=== PATIENT | male | born 1975 | race African-American/Black ===

== ENCOUNTER 2021-10-15 20:01 | Emergency (ER) | payer OTHER ==
[2021-10-15 20:44] VITALS: BP 123/73; PULSE 92; RESP 18
--- NOTE | 2021-10-15 21:44 | ED ---
General Adult HPI - General Chief complaint: Upper Respiratory Infection Stated complaint: Cough,Congestion Time Seen by Provider: 10/15/21 21:35 Source: patient, RN notes reviewed Mode of arrival: ambulatory Limitations: no limitations - History of Present Illness Initial comments: This is a well-appearing 46-year-old male that presents to the emergency room with complaints of cough and congestion for the past 3-4 days. He states that his has similar symptoms. They have been tested and are negative for Covid. He did get the Covid vaccine and booster. He denies any chest pain. He states that the cough is worse at night, during the day is not present. He denies any leg swelling, fevers, nausea or vomiting. He denies any medical history no medicines on a daily basis. He is a smoker and smokes one pack in about 3 days. -: days(s) (4) Severity scale (1-10): 0 Associated Symptoms: cough, other (Congestion, sinus draining) - Related Data Previous Rx's Medication Instructions Recorded Albuterol Inhaler (Mhu) [Ventolin 2 puff INHALATION Q6HR PRN #1 01/06/16 Hfa Inhaler (Mhu)] inhaler Ciprofloxacin HCl [Cipro] 500 mg PO Q12HR #20 tablet 01/06/16 predniSONE [Deltasone] 20 mg PO BID #14 tab 01/06/16 Loratadine/Pseudoephedrine 1 tab PO DAILY 30 Days #30 tab 10/15/21 [Loratadine-D 24Hr Tablet] Allergies Allergy/AdvReac Type Severity Reaction Status Date / Time Penicillins Allergy Anaphylaxis Verified 10/15/21 20:44 Review of Systems ROS Statement: Those systems with pertinent positive or pertinent negative responses have been documented in the HPI. ROS Other: All systems not noted in ROS Statement are negative. Past Medical History Past Medical History: No Reported History History of Any Multi-Drug Resistant Organisms: None Reported Past Surgical History: No Surgical Hx Reported Past Psychological History: No Psychological Hx Reported Smoking Status: Current every day smoker Past Alcohol Use History: Occasional Past Drug Use History: None Reported General Exam Limitations: no limitations General appearance: alert, in no apparent distress Head exam: Present: atraumatic, normocephalic, normal inspection Eye exam: Present: normal appearance, EOMI. Absent: scleral icterus, co njunctival injection, periorbital swelling ENT exam: Present: normal exam, normal oropharynx, mucous membranes moist Neck exam: Present: normal inspection, full ROM. Absent: tenderness, meningismus, lymphadenopathy, thyromegaly Respiratory exam: Present: normal lung sounds bilaterally. Absent: respiratory distress, wheezes, rales, rhonchi, stridor Cardiovascular Exam: Present: regular rate, normal rhythm, normal heart sounds. Absent: systolic murmur, diastolic murmur, rubs, gallop, clicks Extremities exam: Present: normal inspection, full ROM, normal capillary refill. Absent: tenderness, pedal edema, joint swelling, calf tenderness Neurological exam: Present: alert, oriented X3, normal gait. Absent: CN II-XII intact Psychiatric exam: Present: normal affect, normal mood Skin exam: Present: warm, dry, intact, normal color. Absent: rash, cyanosis, diaphoretic Course Vital Signs 10/15/21 20:38 Pulse Rate 92 Respiratory 18 Rate Blood Pressure 123/73 O2 Sat by Pulse 99 Oximetry Medical Decision Making - Medical Decision Making Patient presents to the emergency room with complaints of cough and congestion with nasal drainage that is worse at night for the past 4 days. He denies any fevers. He states that his also has similar symptoms. His lungs are clear to auscultation vital signs are stable. His Covid test is negative. Chest x- ray is clear with no acute cardiopulmonary process. Patient was directed to try Benadryl at night to suppress the drainage and cough. I did discuss return parameters of increasing difficulty in breathing, chest pain, or fevers to return to the emergency room. Case discussed with Dr. Man. - Lab Data Lab Results 10/15/21 Range/Units 20:46 Coronavirus (PCR) Not Detected (Not Detectd) Disposition Clinical Impression: Common cold Disposition: HOME SELF-CARE Condition: Good Additional Instructions: You can try Benadryl 25 or 50 mg at night to help with drainage. Return to the emergency room with any new or worsening symptoms including headache, sinus pain or fevers. Prescriptions: Loratadine/Pseudoephedrine [Loratadine-D 24Hr Tablet] 1 tab PO DAILY 30 Days #30 tab Is patient prescribed a controlled substance at d/c from ED?: No Referrals: None,Stated [Primary Care Provider] - 1-2 days
--- NOTE | 2021-10-15 22:16 | XR ---
EXAMINATION TYPE: XR chest 2V DATE OF EXAM: 10/15/2021 COMPARISON: 01/06/2016 HISTORY: Cough TECHNIQUE: 2 views FINDINGS: Heart and mediastinum are normal. Lungs are clear. Diaphragm is normal. Bony thorax is inta ct. IMPRESSION: Normal chest. No change.
== END 2021-10-15 23:40 | disposition home or self-care (01) ==
LOC: EC 20:01
DX: J00 Acute nasopharyngitis [common cold] (principal); F17.200 Nicotine dependence, unspecified, uncomplicated; Z20.822 Contact with and (suspected) exposure to COVID-19; Z88.0 Allergy status to penicillin
CPT/HCPCS: 71046; 87635; 99283

== ENCOUNTER 2022-02-12 06:52 | Day surgery (SDC) | payer OTHER ==
[2022-02-09 08:29] VITALS: BMI 34.2
[~2022-02-12 06:52] MED LIST: DEXAMETHASONE SOD PHOSPHATE 4 MG/ML 1 ML VIAL IV ONE; LACTATED RINGERS 1,000 ML IV SCH; LIDOCAINE 1% (10MG/ML) FOR IV START INTRADERMA PRN; ONDANSETRON 4 MG/2 ML VIAL IVP ONE; SCOPOLAMINE 1.5MG/72HR PATCH TRANSDERM ONE; VANCOMYCIN 1,750 MG in SODIUM CHLORIDE 0.9% 500 ML 500 ML IVPB PRN
[2022-02-12] MEDS ORDERED: HYDROmorphone 0.5 MG/0.5 ML SYRINGE IVP PRN (07:00)
[2022-02-12 07:41] VITALS: RESP 16
[2022-02-12] MEDS ORDERED: MIDAZOLAM 2 MG/2 ML VIAL IV ONE (08:01)
[2022-02-12] MEDS ORDERED: PROPOFOL 10 MG/ML 20 ML VIAL IV ONE (08:45)
[2022-02-12] MEDS ORDERED: ROCURONIUM 10 MG/ML (5 ML VIAL) IV ONE (08:45)
[2022-02-12] MEDS ORDERED: ROPIVACAINE 5 MG/ML 30 ML VIAL ONE (08:45)
[2022-02-12] MEDS ORDERED: NEOSTIGMINE 1 MG/ML 10 ML VIAL ONE (08:45)
[2022-02-12] MEDS ORDERED: fentaNYL (PF) 50 MCG/ML 2 ML AMP ONE (08:45)
[2022-02-12] MEDS ORDERED: MIDAZOLAM 2 MG/2 ML VIAL ONE (08:45)
[2022-02-12] MEDS ORDERED: LIDOCAINE 1% INJ 10MG/ML (20 ML MDV) ONE (08:45)
[2022-02-12] MEDS ORDERED: DEXAMETHASONE SOD PHOSPHATE 4 MG/ML 1 ML VIAL ONE (08:45)
[2022-02-12] MEDS ORDERED: PHENYLEPHRINE-0.9% NACL SYG 1,000 MCG/10 ML SYRINGE ONE (08:45)
[2022-02-12] MEDS ORDERED: GLYCOPYRROLATE 0.2 MG/ML 2 ML VIAL ONE (08:45)
[2022-02-12] MEDS ORDERED: SUCCINYLCHOLINE CHLORIDE 100 MG/5 ML SYR IV ONE (08:45)
[2022-02-12 10:41] VITALS: TEMP 98
--- NOTE | 2022-02-12 10:50 | P.OP ---
Date of Procedure: 02/12/22 Preoperative Diagnosis: 1. Displaced lateral malleolar fracture left ankle 2. Ruptured syndesmosis left ankle 3. Ruptured deltoid ligament left ankle Postoperative Diagnosis: 1. Same 2. Same 3. Same Procedure(s) Performed: 1. Open reduction with internal fixation left lateral malleolar fracture 2. Open reduction with internal fixation left syndesmotic rupture 3. Open repair deltoid ligament left ankle Implants: Arthrex precontoured lateral malleolar plate 3.5 and 3.0 locking screws Arthrex tight rope Arthrex fiber Chandana anchors 2 Anesthesia: GETA Surgeon: Wilfrid Huerta Estimated Blood Loss (ml): 5 Pathology: none sent Condition: stable Disposition: PACU Description of Procedure: Prior to the patient being brought to the operative room, anesthesia administered nerve block and left lower extremity. Patient was then brought into the operative room placed on table supine position. Timeout was taken to confirm correct patient identifiers, correct site of surgery, and correct procedure. When all staff in the room were in agreement with the timeout, the patient was induced and placed under general anesthesia. A well-padded tourniquet was placed on the left thigh and a bump underneath the left hip to internally rotate the left leg. The left leg was then prepped and draped usual manner. The leg was exsanguinated with an Esmarch bandage, the knee slightly flexed and then the tourniquet inflated to 250 mmHg. Attention was first directed over the lateral ankle where a linear incision was made over the lateral malleolus. The incision was deepened to the subcutaneous tissue careful to identify, avoid, and retract any neurovascular structures and cauterize any bleeding vessels. Full-thickness incision was made down to the periosteum and then the tissues were reflected from her osseous attachment on the lateral malleolus. The fracture was identified and distracted. Utilizing a combination of a Mega and curettes, any interposing soft tissue was removed. The reduction clamp was used to reduce the fracture in place. Fluoroscopy was used to check the alignment. Then a 3.5 mm cortical screw was used for interfragmentary compression from a superior anterior direction to a inferior posterior direction perpendicular to the fracture. Then a precontoured lateral malleolar plate was positioned over the lateral malleolus and checked for positioning under fluoroscopy. Once positioning was correct it was temporarily fixated. (2) 3.5 mm locking screws were placed in the proximal holes and (3) 3.0 locking screws were placed in the distal portion of the plate. Next, the placement of the tightrope anchor was assessed. It was determined that the proper placement of the tight rope would interfere with the interfragmentary screw. Since the fracture was artery stable after the placement of the plate, the interfrag screw was removed. The drill hole for the tight rope anchor was made through the plate approximately 1 cm proximal to the ankle joint. The drill was advanced lateral to medial and slightly anteriorly. Once the drill bit penetrated the medial cortex it was removed. The tight rope anchor was inserted through the drill hole until the medial button was clear of the medial cortex of the tibia. The button was then deployed and the manipulated into position so it laid flat against the medial tibia. Once that was completed the front desk receptionist was released and removed. The clamp was then placed over the ankle joint from medial to lateral to keep the syndesmosis reduced under proper tensioning. With the ankle maxillae dorsiflexed the tight rope was then tightened down to the plate. Fluoroscopic imaging was performed that showed that there was no gapping of the syndesmosis. The wound is then thoroughly irrigated with antibiotic saline. Deep closure was done with 2-0 Vicryl. Subcu closure was done with 4-0 Monocryl. And skin closure done with radha. Attention was then directed over the medial malleolus. A linear incision was made over the medial malleolus. It was deepened down to the subcutaneous tissue careful to identify, avoid, and retract any neurovascular structures and cauterize any bleeding vessels. Full-thickness dissection was done down to level the deltoid ligament. The deltoid ligament was noted to be extremely frayed and from the anterior and distal aspect of the medial malleolus attachment. Scalpel was used to remove the remaining soft tissue from the medial malleolus. A Mega was then used to remove the cortical bone which would help facilitate ligament reattachment upon closure. Drill holes for the Arthrex fiber Chandana anchors were made in the medial malleolus one near the distal tip of the other more anterior. The suture attached to the anchor was then fed through the deltoid ligament. Was then pulled distally and the ankle inverted to clear the soft tissue from the medial gutter. Then under fluoroscopic visualization the drill hole for a 4.75 swivel lock anchor was made to the medial aspect of the tibia superior to the ankle joint. With the ankle held and inversion all 4 ends of the fiber Andrea anchors suture were pulled tight and fed through the 4.75 anchor. The anchor was then aligned with the drill hole the medial tibia and impacted to the hole tensioning the suture and repairing ligament. Fluoroscopic stress imaging was done which noted no excessive gapping of the medial gutter of the ankle joint. The wound is thoroughly irrigated with anatomic saline. Deep closure was done with 2-0 Vicryl. Subcutaneous closure was done with 4-0 Monocryl. And skin closure done with radha. an Arthrex jumpstart dressing was applied to both incisions. A bulky dry dressings applied the left ankle. The tourniquet was released and capillary refill return to all digits on the left foot. Then a well-padded, well molded p leanna posterior mold/sugar tong splint was applied to left lower extremity. Ankle was held in slight inversion in neutral dorsiflexion as it dried. Then anesthesia was reversed and the patient was taken recovery with vital signs stable.
--- NOTE | 2022-02-12 11:29 | XR ---
EXAMINATION TYPE: XR ankle limited LT, FL guidance operating room DATE OF EXAM: 02/12/2022 COMPARISON: NONE HISTORY: Open reduction internal fixation left ankle Fluoroscopy support supplied to the referring clinician. See dictated report from orthopedic surgery , 17 seconds fluoroscopy time, single intraoperative image documents the procedure
[2022-02-12] MEDS ORDERED: KETOROLAC 15 MG/ML 1 ML VIAL ONE (11:30)
[2022-02-12 12:47] VITALS: BP 128/76; PULSE 72
--- NOTE | 2022-02-13 12:43 | P.ANPRN ---
Procedure Note - Anesthesia - Nerve Block Performed Left Popliteal Single Time Out Performed: Yes Date of Procedure: 02/12/22 Procedure Start Time: 08:00 Procedure Stop Time: 08:05 Location of Patient: PreOp Indication: Acute Post-Operative Pain, Requested by Surgeon Sedation Type: Sedate with meaningful contact maintained Preparation: Sterile Prep Position: Right Lateral Needle Types: Pajunk Needle Gauge: 21 Ultrasound used to visualize needle placement: Yes Ultrasound used to observe medication spread: Yes Blood Aspirated: No Pain Paresthesia on Injection Noted: No Resistance on Injection: Normal Image Stored and Saved: Yes Events: Uneventful and Well Tolerated (ropi .5% 25cc plus dexamethasone 4mg)
--- NOTE | 2022-02-13 12:44 | P.ANPRN ---
Procedure Note - Anesthesia - Nerve Block Performed Left Adductor Canal Single Time Out Performed: Yes Date of Procedure: 02/12/22 Procedure Start Time: 08:06 Procedure Stop Time: 08:10 Location of Patient: PreOp Indication: Acute Post-Operative Pain, Requested by Surgeon Sedation Type: Sedate with meaningful contact maintained Preparation: Sterile Prep Position: Right Lateral Needle Types: Pajunk Ultrasound used to visualize needle placement: Yes Ultrasound used to observe medication spread: Yes Blood Aspirated: No Pain Paresthesia on Injection Noted: No Resistance on Injection: Normal Image Stored and Saved: Yes Events: Uneventful and Well Tolerated (ropi .5% 25cc plus dexamethasone 4mg)
== END 2022-02-12 12:53 | disposition home or self-care (01) ==
LOC: OR 06:52
PROVIDERS: ATTEND Podiatrist
DX: S82.62XA Displaced fracture of lateral malleolus of left fibula, initial encounter for closed fracture (principal); S93.432A Sprain of tibiofibular ligament of left ankle, initial encounter; S93.422A Sprain of deltoid ligament of left ankle, initial encounter; Z98.52 Vasectomy status; F17.210 Nicotine dependence, cigarettes, uncomplicated; W19.XXXA Unspecified fall, initial encounter; Z83.3 Family history of diabetes mellitus; Z79.1 Long term (current) use of non-steroidal anti-inflammatories (NSAID); Z79.899 Other long term (current) drug therapy; Z88.0 Allergy status to penicillin
CPT/HCPCS: 64447; 64445; 76942; 73600; 27792; 27829; C1713 ×3; J2250; J3370; J1100; J2710; J2405; J2001; J3010; J2795; J1885; J2370; J0330; J2704